=== PATIENT | female | born 1970 | race Asian ===

== ENCOUNTER 2024-09-22 16:54 | Emergency (ER) | payer MEDICAID ==
[~2024-09-22] VITALS: Ht 147.3 cm; Wt 60.9 kg
--- NOTE | 2024-09-22 17:12 | ED.PDOC ---
GI ASSESSMENT HPI Comments 54 y.o Turkish speaking only female presents to the ED with family for a chief complaint of RUQ pain that started one month ago. Patient reports pain is constant, radiates to his back and worsens when passing a bowel movement and/or urinating. Patient has pain on palpation and denies any modifying factors. Normal bowel movements reported, no fever, chills or urinary symptoms reported. Patient complains of occasional bloody stool events over the past two weeks as well. 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[employer] History Family History Family History: Reviewed,noncontributory to illness Social History Smoker: Non-Smoker Alcohol: Denies ETOH Use Drugs: Denies Drug Use Lives In: Home Constitutional: denies: chills, diaphoresis, fatigue, fever, malaise, sweats, weakness, others EENTM: denies: blurred vision, double vision, ear bleeding, ear discharge, ear drainage, ear pain, ear ringing, eye pain, eye redness, hearing loss, mouth pain, mouth swelling, nasal discharge, nose bleeding, nose congestion, nose pain, photophobia, tearing, throat pain, throat swelling, voice changes, others Respiratory: denies: cough, hemoptysis, orthopnea, SOB at rest, shortness of breath, SOB with excertion, stridor, wheezing, others Cardiovascular: denies: chest pain, dizzy spells, diaphoresis, Dyspnea on exertion, edema, irregular heart beat, left arm pain, lightheadedness, palpitations, PND, syncope, others Gastrointestinal: reports: abdominal pain (Right-sided flank pain), blood streaked bowels; denies: abdomen distended, constipated, diarrhea, dysphagia, difficulty swallowing, hematemesis, melena, nausea, poor appetite, poor fluid intake, rectal bleeding, rectal pain, vomiting, others Genitourinary: denies: abnormal vagina bleeding, burning, dyspareunia, dysuria, flank pain, frequency, hematuria, incontinence, pain, , vagina discharge, urgency, others Neurological: denies: dizziness, fainting, headache, left sided numbness, left sided weakness, numbness, paresthesia, pre-existing deficit, right sided numbness, right sided weakness, seizure, speech problems, tingling, tremors, weakness, others Musculoskeletal: reports: back pain; denies: gout, joint pain, joint swelling, muscle pain, muscle stiffness, neck pain, others Integumetry: denies: bruises, change in color, change in hair/nails, dryness, laceration, lesions, lumps, rash, wounds, others Allergic/Immunocompromised: denies: Difficulty Healing, Frequent Infections, Hives, Itching, others Hematologic/Lymphatic: denies: anemia, blood clots, easy bleeding, easy bruising, swollen glands, others Endocrine: denies: excessive hunger, excessive sweating, excessive thirst, excessive urination, flushing, intolerance to cold, intolerance to heat, unexplained weight gain, unexplained weight loss, others Psychiatric: denies: anxiety, bipolar disorder, depression, hopeless, panic disorder, schizophrenia, sleepless, suicidal, others All Other Systems: Reviewed and Negative Physical Exam General Appearance: Moderate Distress (Patient appears to be in moderate distress at time of evaluation.), Normal HEENT: Normal ENT Inspection, Pharynx Normal, TMs Normal Neck: Full Range of Motion, Non-Tender, Normal, Normal Inspection Respiratory: Chest Non-Tender, Lungs Clear, No Accessory Muscle Use, No Respiratory Distress, Normal Breath Sounds Cardiovascular: No Edema, No JVD, No Murmur, No Gallop, Normal Peripheral Pulses, Regular Rate/Rhythm Breast Exam: Deferred Gastrointestinal: RUQ, Tenderness (Diffuse tenderness to palpation in the right CVA region extending into the right upper quadrant and right lower quadrant. No pulsatile masses. No signs of trauma.) Genitalia: Deferred Pelvic: Deferred Rectal: Deferred Extremities: No calf tenderness, Normal capillary refill, Normal inspection, Normal range of motion, Non-tender, No pedal edema Musculoskeletal : Apperance: Normal Neurologic: Alert, hay rake operator II-XII nml as Tested, No Motor Deficits, Normal Affect, Normal Mood, No Sensory Deficits Cerebellar Function: Normal Reflexes: Normal Skin: Dry, Normal Color, Warm Lymphatic: No Adenopathy Was a procedure done? Was a procedure done?: No GI differential Dx Differential Diagnosis: Cholangitis, Cholecystitis, Constipation, Gastroenteritis, Inflammatory BD, UTI, Kidney Stone X-Ray, Labs, Meds, VS Vital Signs Date Time Temp Pulse Resp B/P (MAP) Pulse Ox O2 Delivery O2 Flow Rate FiO2 09/22/24 20:04 80 16 98 Room Air 09/22/24 20:04 98.1 80 16 148/82 (104) 98 98.1 09/22/24 19:58 80 16 148/82 09/22/24 18:06 98.7 77 17 134/71 (92) 94 98.7 09/22/24 18:06 77 17 94 Room Air 09/22/24 18:03 81 16 150/87 09/22/24 17:16 98.5 89 18 165/70 (101) 98 Lab Test 09/22/24 17:35 09/22/24 17:15 Range/Units White Blood Count 10.6 4.4-10.8 10^3/uL Red Blood Count 4.37 4.0-5.20 10^6/uL Hemoglobin 13.4 12.2-16.2 g/dL Hematocrit 39.3 36.0-46.0 % Mean Corpuscular Volume 90.0 80.0-100.0 fL Mean Corpuscular Hemoglobin 30.6 28.0-32.0 pg Mean Corpuscular Hemoglobin Concent 34.0 32.0-36.0 g/dL Red Cell Distribution Width 13.2 11.8-14.3 % Platelet Count 338 140-450 10^3/uL Mean Platelet Volume 8.3 6.9-10.8 fL Neutrophils (%) (Auto) 72.2 37.0-80.0 % Lymphocytes (%) (Auto) 17.5 10.0-50.0 % Monocytes (%) (Auto) 9.1 0.0-12.0 % Eosinophils (%) (Auto) 0.5 0.0-7.0 % Basophils (%) (Auto) 0.7 0.0-2.0 % Neutrophils # (Auto) 7.6 1.6-8.6 10 ^3/uL Lymphocytes # (Auto) 1.9 0.4-5.4 10 ^3/uL Monocytes # (Auto) 1.0 0-1.3 10 ^3/uL Eosinophils # (Auto) 0.1 0-0.8 10 ^3/uL Basophils # (Auto) 0.1 0-0.2 10 ^3/uL Nucleated Red Blood Cells 0.0 % Sodium Level 144 136-145 mmol/L Potassium Level 3.3 L 3.5-5.1 mmol/L Chloride Level 107 98-107 mmol/L Carbon Dioxide Level 27 20-31 mmol/L Anion Gap 10 5-15 Blood Urea Nitrogen 22 9-23 mg/dL Creatinine 0.72 0.550-1.02 mg/dL Glomerular Filtration Rate Calc 99 >90 mL/min BUN/Creatinine Ratio 30.6 H 10.0-20.0 Serum Glucose 100 74-106 mg/dL Calcium Level 10.3 8.7-10.4 mg/dL Total Bilirubin 0.3 0.2-1.0 mg/dL Aspartate Amino Transferase (AST) 34 13-40 U/L Alanine Aminotransferase (ALT) 45 H 7-40 U/L Alkaline Phosphatase 126 H 46-116 U/L C-Reactive Protein High Sensitivity 0.07 <1.0 mg/dL Total Protein 7.1 5.7-8.2 g/dL Albumin 4.5 3.2-4.8 g/dL Lipase 47 12-53 U/L Urine Color Colorless Yellow Urine Clarity Clear Clear Urine pH 7.0 5.0-9.0 Urine Specific [place] 1.008 1.001-1.035 Urine Protein Negative Negative Urine Ketones Negative Negative Urine Blood 2+ H Negative /uL Urine Nitrite Negative Negative Urine Bilirubin Negative Negative Urine Urobilinogen Normal Negative mg/dL Urine Leukocyte Esterase Negative Negative /uL Urine RBC 32 0 - 4 /hpf Urine WBC <1 0 - 5 /hpf Urine Squamous Epithelial Cells None seen <5 /hpf Urine Amorphous Crystals Few None Seen /hpf Urine Bacteria None seen None Seen /hpf Urine Glucose Normal Normal mg/dL Current Medications Medications (Trade) Dose Ordered Sig/Lenny Route Start Time Stop Time Status Last Admin Morphine Sulfate 2 mg ONCE ONCE IM 09/22/24 17:15 09/22/24 17:19 DC 09/22/24 18:03 Ondansetron HCl (Zofran Po) 4 mg ONCE ONCE PO 09/22/24 17:15 09/22/24 17:19 DC 09/22/24 18:01 X-Ray, Labs, Meds, VS Comment All studies performed the ED were evaluated by me personally. Serum laboratories were unremarkable for any systemic concerns, but urinalysis revealed blood in the urine indicative of a kidney stone. CT of abdomen and pelvis revealed a 4 mm right-sided kidney stone causing some mild hydronephrosis. Discussed the CT results with the family and advised that I will send the patient home with medications to aid in passing of that stone. Advised family that if symptoms worsen, patient will need to come back to the emergency department for inpatient admission. Time of 1ST Reevaluation: 22:01 Reevaluation 1ST: Improved Consultation: PCP Patient Education/Counseling: Diagnosis, Treatment, Prognosis Family Education/Counseling: Diagnosis, Treatment, No Family Present Departure 1 Departure Time of Disposition: 22:01 Impression: Primary Impression: Kidney stone on right side Additional Impressions: Hydronephrosis concurrent with and due to calculi of kidney and ureter Hemorrhoids Disposition: 01 HOME / SELF CARE / HOMELESS Condition: Stable Additional Instructions: Advised patient utilize medication as directed and as needed additionally, patient should utilize copious hydration until case stone event his past. Patient should utilize suppositories until she establishes a healthy bowel plaster pattern caster her hemorrhoid concerns has been reduced. Patient should follow up with the primary care provider for discussions related to hemorrhoid and kidney stone concerns. e-Prescriptions Hydrocodone-Acetaminophen (Hydrocodone Bitartrate/AC 5-325 mg) 1 Tab Tab 1 TAB PO Q6HP PRN, #15 TAB Prov: MAVERICK MCALLISTER PAC 09/22/24 Ibuprofen Micronized (Ibuprofen) 800 Mg Tab 800 MG PO Q8HP PRN, #20 TAB Prov: MAVERICK MCALLISTER PAC 09/22/24 Tamsulosin Hcl (Flomax) 0.4 Mg Cap 1 CAP PO DAILY for 10 Days, #10 CAP 0 Refills Prov: MAVERICK MCALLISTER 09/22/24 Phenylephrine-Shark Liver Oil- (Hemorrhoidal Suppositorie 0.25-3-85.5 %) 1 Sup Sup 1 SUP MO BID, #20 SUPP Prov: MAVERICK MCALLISTER PAC 09/22/24 Discharged With: Self, Relative Critical Care Note Critical Care Time?: No Stability Stability form required: No I personally scribed for MAVERICK MCALLISTER PAC ([email or web address]) on 09/22/24 at 17:12. Electronically submitted by Amparo Sue ([facility]). MAVERICK MCALLISTER PAC Sep 22, 2024 17:12
[2024-09-22 17:25] LABS: Urine Bacteria None Seen /hpf (None Seen)
[2024-09-22 17:30] LABS: Urine Amorphous Crystal FEW /hpf (None Seen); Urine Blood 2+ /uL (Negative); Urine Clarity Clear (Clear); Urine Color Colorless (Yellow); Urine Protein, UAD Negative (Negative); Urine Specific Gravity 1.008 (1.001-1.035); Urine Urobilinogen Normal (Negative); Urine WBC <1 /hpf (0 - 5)
[2024-09-22] MEDS: ONDANSETRON ODT 4 MG TAB PO ONE (18:01)
[2024-09-22] MEDS: MORPHINE SULFATE INJ 2 MG/ml SYRG IM ONE (18:03)
--- NOTE | 2024-09-22 18:04 | DVH ---
INDICATION: Right upper quadrant pain TECHNIQUE: Multiple real-time sonographic images were obtained of the right upper quadrant. COMPARISON: None FINDINGS: The liver demonstrates increased echotexture without focal mass lesions. The liver measure s 13 cm. There is no intrahepatic or extrahepatic ductal dilatation. The common duct measures 0.4 cm. The gallbladder is without evidence of stone or sludge. The gallbladder wall measures 0.3 cm and is within normal limits. The right kidney measures 10.6 cm. The right kidney demonstrates mild hydronephrosis. The pancreas is not well visualized due to overlying bowel gas. IMPRESSION: Hepatic steatosis. Mild right-sided hydronephrosis.
[2024-09-22 18:40] LABS: Basophils # (auto) 0.1 10 ^3/uL (0-0.2); Basophils % (auto) 0.7 % (0.0-2.0); Eosinophils # (auto) 0.1 10 ^3/uL (0-0.8); Eosinophils % (auto) 0.5 % (0.0-7.0); Hematocrit 39.3 % (36.0-46.0); Hemoglobin 13.4 g/dL (12.2-16.2); Lymphocytes # (auto) 1.9 10 ^3/uL (0.4-5.4); Lymphocytes % (auto) 17.5 % (10.0-50.0); Mean Corpuscular Hemoglobin 30.6 pg (28.0-32.0); Monocytes % (auto) 9.1 % (0.0-12.0); Neutrophils # (auto) 7.6 10 ^3/uL (1.6-8.6); Neutrophils % (auto) 72.2 % (37.0-80.0); Platelet Count (auto) 338 10^3/uL (140-450); Red Blood Cells 4.37 10^6/uL (4.0-5.20); Red Cell Distribution Width 13.2 % (11.8-14.3); White Blood Cell 10.6 10^3/uL (4.4-10.8)
[2024-09-22 18:46] LABS: Anion Gap 10 (5-15); Aspartate Aminotransferase 34 U/L (13-40); BUN/Creatinine Ratio 30.6 (10.0-20.0); Blood Urea Nitrogen 22 mg/dL (9-23); Calcium 10.3 mg/dL (8.7-10.4); Carbon Dioxide 27 mmol/L (20-31); Chloride 107 mmol/L (98-107); Glucose 100 mg/dL (74-106); Lipase 47 U/L (12-53); Sodium 144 mmol/L (136-145)
[2024-09-22 18:47] LABS: Albumin 4.5 g/dL (3.2-4.8); Total Protein 7.1 g/dL (5.7-8.2)
[2024-09-22 18:56] LABS: Alanine Aminotransferase 45 U/L (7-40); Alkaline Phosphatase 126 U/L (46-116); Bilirubin, Total 0.3 mg/dL (0.2-1.0); Potassium 3.3 mmol/L (3.5-5.1)
[2024-09-22 19:07] LABS: CRP High Sensitivity 0.07 mg/dL (<1.0)
--- NOTE | 2024-09-22 21:40 | DVH ---
CT SCAN ABDOMEN AND PELVIS WITHOUT CONTRAST CLINICAL HISTORY: Right-sided hydronephrosis TECHNIQUE: Helical axial images are obtained from the lung bases through the pelvis without oral cont rast. No intravenous contrast was administered. Coronal and sagittal reformatted images were generate d from thin section reconstructions. One or more of the following radiation dose reduction techniques were used for this examination: automated exposure control, adjustment of the mA and/or kV according to patient size, use of iterative reconstruction technique. COMPARISON: Right upper quadrant ultrasound obtained earlier the same day. FINDINGS: LOWER THORAX: Imaged lung bases are grossly clear. ABDOMEN AND PELVIS: Evaluation of visceral and vascular structures is limited due to lack of contrast administration. As visualized, the unenhanced liver, spleen, pancreas and adrenals appear grossly unremarkable. No si zable, radiopaque cholelithiasis. Mild right hydroureteronephrosis and perinephric / periureteral inflammation. An approximately 4 mm c alculus is seen in the posterior right bladder, possibly within the ureterovesicular junction. Additi onal 1-2 mm nonobstructing left lower pole nephrolithiasis. No evidence of abdominal aortic aneurysm. No evidence of bowel obstruction. Normal caliber appendix. No free intraperitoneal air or fluid ident ified. No destructive osseous lesions identified. Degenerative changes at L5-S1. IMPRESSION: Approximately 4 mm calculus in the posterior right bladder which may be in the ureterovesicular junct ion. This causes mild right hydroureteronephrosis and perinephric/periureteral inflammation.
[2024-09-22] MEDS ORDERED: TAMS-35 PO (22:04)
[2024-09-22] MEDS ORDERED: HYDR-4902 PO (22:04)
[2024-09-22] MEDS ORDERED: IBUP-1455 PO (22:04)
[2024-09-22] MEDS ORDERED: PHENSUP38 PR (22:04)
[2024-09-22] MEDS: TAMSULOSIN HYDROCHLORIDE 0.4 MG CAP PO ONE (22:28)
[2024-09-22] MEDS: HYDROcodone-ACET 5/325MG TAB PO ONE (22:29)
[2024-09-22 22:30] VITALS: BP 152/77; PULSE 70; RESP 16; TEMP 97.8; O2SAT 98
== END 2024-09-23 | disposition home or self-care (01) ==
LOC: ER 16:59
DX: N13.2 Hydronephrosis with renal and ureteral calculous obstruction (principal); K64.9 Unspecified hemorrhoids; Z98.890 Other specified postprocedural states
CPT/HCPCS: 36415; 74176; 76705; 80053; 81001; 83690; 85025; 86141; 96372; 99285; J2270; Q0162